=== PATIENT | male | born 1980 | race Caucasian/White ===

== ENCOUNTER 2022-01-28 21:58 | Emergency (ER) | payer BC ==
[2022-01-28 22:19] VITALS: BP 147/96; PULSE 85
[2022-01-28] MEDS: Lidocaine 1% 5 ML VIAL INJECT ONE (23:08)
[2022-01-28] MEDS: traMADol 50 MG Tab PO ONE (23:41)
[2022-01-28] MEDS: Cephalexin 250 MG Cap PO ONE (23:41)
== END 2022-01-28 23:40 | disposition home or self-care (01) ==
LOC: LL.ED 21:58
DX: S71.112A Laceration without foreign body, left thigh, initial encounter (principal); K21.9 Gastro-esophageal reflux disease without esophagitis; R03.0 Elevated blood-pressure reading, without diagnosis of hypertension; W26.8XXA Contact with other sharp object(s), not elsewhere classified, initial encounter
CPT/HCPCS: 12001; 99283; 99283-25; A9270-GY

== ENCOUNTER 2023-03-19 10:57 | Day surgery (SDC) | payer BC ==
[~2023-03-19 10:57] MED LIST: Propofol 200 MG/20 ML SDV ONE
[2023-03-19] MEDS ORDERED: Sodium Chloride 0.9% 10 ML Syringe FLUSH PRN (11:15)
[2023-03-19] MEDS: Lactated Ringers 1,000 ML IV SCH (11:44)
[2023-03-19] MEDS ORDERED: Propofol 200 MG/20 ML SDV ONE (12:40)
[2023-03-19 13:44] VITALS: BP 147/96; PULSE 65
== END 2023-03-19 13:25 | disposition home or self-care (01) ==
LOC: LL.SDS 10:57
PROVIDERS: ATTEND Surgery
DX: K62.89 Other specified diseases of anus and rectum (principal); J45.909 Unspecified asthma, uncomplicated; Z79.899 Other long term (current) drug therapy
CPT/HCPCS: 00812; J2704; J7120